=== PATIENT | male | born 1995 | race Caucasian/White ===

== ENCOUNTER 2024-04-02 11:30 | Day surgery (SDC) | payer OTHER, SELFPAY ==
[2024-03-29 08:09] VITALS: BMI 45.1
--- NOTE | 2024-04-02 12:21 | SUR.PREOP ---
Telephone order from [facility]ogany [facility] [employer] for Scop patch due to pt hx of car sickness and using scop patch with previous surgery
[2024-04-02 12:24] VITALS: BMI 44.5
[2024-04-02] MEDS: ACETAMINOPHEN 325 MG TABLET 975 MG PO (12:51)
[2024-04-02] MEDS: SCOPOLAMINE 1 PATCH TOP (12:52)
[2024-04-02] MEDS: LACTATED RINGERS 1,000 ML 42 ML IV (12:52)
--- NOTE | 2024-04-02 12:54 | PM.PREOP ---
Pre-operative Note Interval Note History & Physical reviewed/Exam performed by Physician: Yes Changes to H&P: No
[2024-04-02 12:56] VITALS: BP 124/92; PULSE 66; RESP 16; TEMP 36.6; O2SAT 97
[2024-04-02 13:00] LABS: COVID19 -Nasal RAPID Negative (Negative)
[2024-04-02] MEDS: CEFAZOLIN VIAL 3 GM in SODIUM CHLORIDE 0.9% 100 ML IV (13:20)
--- NOTE | 2024-04-02 13:32 | SUR.OPER ---
Prone on spine table, head in foam head support, padded chest and pelvic supports, gel pad at knees, lower legs supported by pillows; nipples, genitalia and toes free of pressure, arms secured on foam padded arm boards at <90 degrees abduction. Tape over blanket at thigh secured to table.
--- NOTE | 2024-04-02 13:43 | DI.RAD.S_ITS ---
PROCEDURE: XR LUMBAR SPINE 2-3V INDICATIONS: L4-5 MICRODISCECTOMY TECHNIQUE: 2 digital images of the lower lumbar spine from the OR are submitted COMPARISON: None. FINDINGS: Metallic cylinder overlies the posterior L4-5 left interlaminar soft tissues. L3-4 L4-5 L5-S1 discs appear normal that no osseous abnormalities. IMPRESSION: Surgical findings as described Dictated by: Mandeep Lopez M.D. on 04/03/2024 at 9:23 Approved by: Mandeep Lopez M.D. on 04/03/2024 at 9:25
--- NOTE | 2024-04-02 14:09 | PM.OP.1 ---
Operative Date/Time/Diagnoses Date of procedure: 04/02/24 Time of procedure: 13:00 Pre-op diagnosis: 1. L4-5 spinal stenosis 2. L4-5 disc herniation Post-op diagnosis: same Procedure & Clinicians Procedure: 1. L4-5 left microdiscectomy. 2. Utilization of microsurgical technique and operating microscope Same procedure as scheduled: Yes Surgeon: Cl [employer] Operator: Manisha Salomon Yes if Unassisted: No Anesthesia Type: General Operative Notes Closure Type: primary Specimen(s): none sent Estimated Blood Loss (mL): 5 Blood products transfused: none Procedure in detail: Patient was seen in the preoperative area. Risks and benefits of the surgery was discussed with the patient. Informed consent was obtained from the patient and placed in the chart. Surgical site was marked. Patient was taken to the operative room. General anesthesia was administered. Prophylactic antibiotic was given to the patient less than 30 min before the incision was made. Patient was placed into a prone position on the Louie table. Patient's back was then prepped and draped in the sterile fashion. Time-out was performed at this time. Using AP and lateral C-arm imaging the interval between L4-5 was identified and marked on patient's back. A 1 inch incision 1 in from midline was made on the left side. The fascia was incised in line with skin incision. Globus MARS retractors was placed inside the incision and docked onto the L4 lamina. Using microsurgical technique and operating microscope, a L4 laminotomy was performed using a Kerrison rongeur. Liagamentum flavum was resected at the site of the laminotomy. The disc space at L4-5 was identified. Microdiscectomy was performed by incising the annulus with #11 blade. Microcurettes and pituitary was used to removed herniated disc fragments of disc from the epidural space. Patient was found to have significant amount of adhesion between the dura and the surrounding epidural tissue including ligamentum flavum the annulus and the posterior aspect of vertebral bodies. The dura was also found to be significantly more friable than average. There was a small dural defect that was identified on the dorsal aspect of the thecal sac after the decompression was completed. DuraGen and Tisseel was used to patch the dural defect. After the patch was completed there was no visible CSF leakage. After the microdiskectomy was completed, the area medial lateral superior and inferior to the area of the microdiskectomy was inspected and explored using a micro curette. No other impinging structure was identified. The wound was then irrigated with sterile normal saline. The deep fascia was closed with 1-0 Vicryl. The subcutaneous tissue was closed with 2-0 Vicryl. The skin was closed with 4-0 Monocryl. Patient tolerated the procedure well. There were no complications. Patient was transferred recovery room in stable condition. Complications: none Post-operative Condition: stable Disposition: PACU Plan for aftercare: Discharge to home
[2024-04-02 14:25] VITALS: BP 146/88; PULSE 98; RESP 17; TEMP 36.3; O2SAT 95
[2024-04-02 14:30] VITALS: BP 107/61; PULSE 69; RESP 12; O2SAT 93
[2024-04-02 14:35] VITALS: BP 116/70; PULSE 63; RESP 12; TEMP 36.4; O2SAT 96
[2024-04-02] MEDS: hydrOXYzine 50 MG/ML INJ IM (14:35)
[2024-04-02 14:42] VITALS: BP 115/73; PULSE 67; RESP 13; O2SAT 100
[2024-04-02 14:55] VITALS: BP 124/72; PULSE 63; RESP 16; O2SAT 95
== END 2024-04-02 15:34 | disposition home or self-care (01) ==
PROVIDERS: PCP Family Medicine; Referring Provider Orthopaedic Surgery Orthopaedic Surgery of the Spine; Visit Provider Orthopaedic Surgery Orthopaedic Surgery of the Spine
PROC: (CPT 63030; principal; 2024-04-02 13:30)
DX: M51.26 Other intervertebral disc displacement, lumbar region (principal); M48.061 Spinal stenosis, lumbar region without neurogenic claudication; Z11.52 Encounter for screening for COVID-19
CPT/HCPCS: 63030; 72100; 76000; 87635; J0690; J1100; J2250; J2405; J2704; J3010; J3410